=== PATIENT | female | born 1955 | race Caucasian/White ===

== ENCOUNTER 2018-12-18 00:18 | Inpatient (IN) | payer OTHER ==
[~2018-12-18] VITALS: Ht 160 cm; Wt 89.0 kg
[2018-12-18 01:03] LABS: Basophils # (auto) 0.1 uL; Basophils % (auto) 0.8 % (0.0-2.0); Eosinophils # (auto) 0.3 uL; Eosinophils % (auto) 4.1 % (0.0-7.0); Hematocrit 41.9 % (36.0-46.0); Hemoglobin 14.1 g/dL (12.2-16.2); Lymphocytes # (auto) 2.4 uL; Lymphocytes % (auto) 38.3 % (10.0-50.0); Mean Corpuscular Hemoglobin 32.7 pg (28.0-32.0); Mean Corpuscular Hgb Conc. 33.7 g/dL (32.0-36.0); Mean Corpuscular Volume 97.1 fL (80.0-100.0); Monocytes # (auto) 0.5 uL; Monocytes % (auto) 7.4 % (0.0-12.0); Neutrophils # (auto) 3.1 uL; Neutrophils % (auto) 49.4 % (37.0-80.0); Nucleated Red Blood Cells % 0.2 %; Platelet Count (auto) 284 10^3/uL (140-450); Red Blood Cells 4.32 10^6/uL (4.0-5.20); Red Cell Distribution Width 12.9 % (11.8-14.3); White Blood Cell 6.3 10^3/uL (4.4-10.8)
[2018-12-18 01:11] LABS: Urine Bacteria FEW /hpf (None Seen); Urine Blood 1+ /uL (Negative); Urine Mucus FEW (None Seen); Urine Specific Gravity 1.027 (1.001-1.035); Urine WBC 5 /hpf (0 - 5)
[2018-12-18 01:20] LABS: INR < 0.93 (0.9-1.15); Partial Thromboplastin Time 25.9 sec (23.64-32.05)
[2018-12-18 01:46] LABS: Albumin 3.9 g/dL (3.4-5.0); Calcium 8.9 mg/dL (8.5-10.1); Potassium 3.9 mmol/L (3.5-5.1)
[2018-12-18 01:48] LABS: BUN/Creatinine Ratio 30.3
[2018-12-18 01:52] LABS: Bilirubin, Total 0.5 mg/dL (0.2-1.0); Total Protein 6.9 g/dL (6.4-8.2)
[2018-12-18] MEDS ORDERED: cloNIDine HCL 0.1 MG TAB PO ONE (04:00)
[2018-12-18 04:20] LABS: Basophils # (auto) 0 uL; Basophils % (auto) 0.5 % (0.0-2.0); Eosinophils # (auto) 0.2 uL; Eosinophils % (auto) 3.5 % (0.0-7.0); Hematocrit 39.8 % (36.0-46.0); Hemoglobin 13.3 g/dL (12.2-16.2); Lymphocytes % (auto) 35.6 % (10.0-50.0); Mean Corpuscular Hemoglobin 32.5 pg (28.0-32.0); Mean Corpuscular Hgb Conc. 33.3 g/dL (32.0-36.0); Mean Corpuscular Volume 97.6 fL (80.0-100.0); Monocytes # (auto) 0.4 uL; Monocytes % (auto) 7.5 % (0.0-12.0); Neutrophils # (auto) 2.9 uL; Neutrophils % (auto) 52.9 % (37.0-80.0); Platelet Count (auto) 259 10^3/uL (140-450); Red Blood Cells 4.08 10^6/uL (4.0-5.20); Red Cell Distribution Width 13.1 % (11.8-14.3); White Blood Cell 5.6 10^3/uL (4.4-10.8)
[2018-12-18] MEDS ORDERED: ENOXAPARIN SOD 100 MG/1 ML SYRINGE SC ONE (04:30)
[2018-12-18 04:45] LABS: Albumin 3.6 g/dL (3.4-5.0); BUN/Creatinine Ratio 34.4; Bilirubin, Total 0.4 mg/dL (0.2-1.0); Potassium 4.3 mmol/L (3.5-5.1); Total Protein 6.5 g/dL (6.4-8.2)
[2018-12-18] MEDS ORDERED: HYDROcodone-ACET 5/325MG TAB PO PRN ×2 (06:00→07:15)
[2018-12-18] MEDS ORDERED: ACETAMINOPHEN 325 MG TAB PO PRN (06:00)
[2018-12-18] MEDS ORDERED: ATORVASTATIN 20 MG TAB PO ONE (06:00)
[2018-12-18] MEDS ORDERED: MORPHINE SULF INJ 2 MG/ML SYRINGE 1ML IV PRN (06:00)
[2018-12-18] MEDS ORDERED: cloNIDine HCL 0.1 MG TAB PO PRN (06:00)
[2018-12-18] MEDS ORDERED: TEMAZEPAM 15 MG CAP PO PRN (06:00)
[2018-12-18] MEDS ORDERED: NITROGLYCERIN 0.4 MG SL TAB SL PRN (06:00)
[2018-12-18] MEDS: FAMOTIDINE 20 MG TAB PO SCH ×2 (08:50→21:02)
[2018-12-18 09:00] VITALS: BP 136/77
[2018-12-18] MEDS: cefTRIAXone 1GM/50ML D5W 50 ML IV SCH (09:29)
--- NOTE | 2018-12-18 10:00 | NUR ---
7704 12/18/18 Contacted principal military analyst Migdalia at [facility] and requested authorization to be provided for patient's continued stay. Per Migdalia this patient has not been assigned to a patient case manager yet-the assigned patient case manager will have to review the clinical information before a decision can be made regarding further authorization. I requested that Migdalia have the assigned patient case manager call me regarding the authorization request. I faxed ER notes, H&P, all xrays, current vitals, labs, and medication list to [facility] at [phone].
[2018-12-18] MEDS: HYDROcodone-ACET 5/325MG TAB PO PRN (10:41)
[2018-12-18] MEDS ORDERED: CLOPIDOGREL 300 MG TAB PO ONE (11:15)
[2018-12-18] MEDS ORDERED: LOSA25TA8 PO (11:36)
[2018-12-18] MEDS ORDERED: ATOR20TA PO (11:36)
[2018-12-18] MEDS ORDERED: HYDR-4833 PO (11:36)
[2018-12-18 12:12] LABS: Magnesium 2.2 mg/dL (1.6-2.6)
[2018-12-18 13:00] VITALS: BP 134/88
[2018-12-18 17:00] VITALS: BP 132/73
[2018-12-18] MEDS: ENOXAPARIN SOD 100 MG/1 ML SYRINGE SC SCH (17:10)
--- NOTE | 2018-12-18 19:00 | NUR ---
OPENING NOTE RECEIVED REPORT FROM DAYSHIFT RN. ASSUMING ROLE OF CARE OF PATIENT AT THIS TIME. PATIENT STATING CHEST PAIN AND DISTRESS. DAYSHIFT RN INITIATING CHEST PAIN PROTOCOL. EKG SHOWING NORMAL SINUS RHYTHM, VS STABLE AT THIS TIME WITH BP 145/72, HR 63, AND OR 97%. PATIENT WILL BE MONITORED CLOSELY AND CHEST PAIN PROTOCOL WILL BE CONTINUED NECESSARY. PATIENT EDUCATED ON PLAN OF CARE AND PATIENT VERBALIZED UNDERSTANDING. BED LOWERED, CALL LIGHT WITHIN REACH, AND PATIENT WILL BE ROUNDED ON EVERY HOUR AND NEEDED.
[2018-12-18] MEDS: METOPROLOL TARTRATE 25 MG TAB PO SCH (21:04)
[2018-12-18 22:00] VITALS: BP 141/66
[2018-12-18] MEDS ORDERED: ATORVASTATIN 20 MG TAB PO SCH (22:00)
--- NOTE | 2018-12-19 | NUR ---
Per md garcias patient started on fluids Per order, patient started on normal saline at 1ml/kg/hr. Patient's current weight at 89kg. Will administer per md order.
[2018-12-19] MEDS: ENOXAPARIN SOD 100 MG/1 ML SYRINGE SC SCH (04:00)
[2018-12-19 05:00] VITALS: BP 135/71
[2018-12-19 06:12] LABS: Basophils # (auto) 0 uL; Basophils % (auto) 0.6 % (0.0-2.0); Eosinophils # (auto) 0.2 uL; Eosinophils % (auto) 5.1 % (0.0-7.0); Hematocrit 42.8 % (36.0-46.0); Hemoglobin 14.5 g/dL (12.2-16.2); Lymphocytes # (auto) 2.3 uL; Mean Corpuscular Hemoglobin 33.4 pg (28.0-32.0); Mean Corpuscular Volume 98.1 fL (80.0-100.0); Monocytes # (auto) 0.3 uL; Monocytes % (auto) 6.6 % (0.0-12.0); Neutrophils # (auto) 1.9 uL; Neutrophils % (auto) 39.7 % (37.0-80.0); Nucleated Red Blood Cells % 0.1 %; Platelet Count (auto) 279 10^3/uL (140-450); Red Blood Cells 4.36 10^6/uL (4.0-5.20); White Blood Cell 4.9 10^3/uL (4.4-10.8)
[2018-12-19 06:16] LABS: BUN/Creatinine Ratio 24.3; Calcium 8.7 mg/dL (8.5-10.1); INR 0.95 (0.9-1.15); Partial Thromboplastin Time 30.4 sec (23.64-32.05); Potassium 4.4 mmol/L (3.5-5.1)
[2018-12-19 08:00] VITALS: BP 157/82
--- NOTE | 2018-12-19 08:07 | NUR ---
patient at [facility]
[2018-12-19] MEDS ORDERED: LIDOCAINE 2%HCL (LOCAL ANESTH.) INJ 20ML MDV ONE (08:11)
[2018-12-19] MEDS ORDERED: IODIXANOL 320MG/ML 100ML BTL IV ONE (08:11)
[2018-12-19] MEDS ORDERED: SODIUM CHL 0.9% 0 ML ONE (08:17)
[2018-12-19] MEDS ORDERED: MIDAZOLAM HCL 1MG/1ML-2 ML VIAL ONE ×2 (08:17→09:24)
[2018-12-19] MEDS ORDERED: ANGIOMAX 250 MG VIAL IV ONE (08:17)
[2018-12-19] MEDS ORDERED: fentaNYL CITRATE 100 MCG/2 ML VL ONE (08:17)
[2018-12-19] MEDS ORDERED: IOHEXOL 350 MG/ML 100ML IJ ONE ×2 (08:18)
[2018-12-19] MEDS ORDERED: VERAPAMIL 2.5MG/ML INJ 2ML VIAL IV ONE (08:19)
[2018-12-19 09:00] VITALS: BP 157/82
[2018-12-19] MEDS: cefTRIAXone 1GM/50ML D5W 50 ML IV SCH (09:00)
[2018-12-19] MEDS: FAMOTIDINE 20 MG TAB PO SCH (09:22)
[2018-12-19] MEDS: METOPROLOL TARTRATE 25 MG TAB PO SCH (09:22)
[2018-12-19] MEDS: CLOPIDOGREL BISULFATE 75 MG TAB PO SCH ×2 (09:23→11:12)
[2018-12-19] MEDS ORDERED: HEPARIN SODIUM (PORCINE) 5000 UNITS/ML 1ML VIAL ONE (09:26)
--- NOTE | 2018-12-19 10:16 | NUR ---
1000 12/19/18 Contacted geographic information systems analyst Adwoa at [facility] requesting authorization for patient's continued stay. Per Adwoa, clinical information was received today-but the assigned bottle caser Aman has to review it before a decision can be made. I asked Adwoa about authorization for yesterday 12/18-she stated that the authorization given from [facility] yesterday is good until 1000 today-I asked her to have that authorization re-faxed as the one we received stated it was only good until 12/18 1000. I requested that Adwoa have bottle caser Aman give me a call-provided her with my contact information.
[2018-12-19 10:46] LABS: Cholesterol 203 mg/dL (< 200); Triglycerides 193 mg/dL (< 150)
[2018-12-19 10:51] LABS: HDL Cholesterol 56 mg/dL (40-59); LDL Cholesterol 120 mg/dL (< 100)
[2018-12-19] MEDS: SODIUM CHLORIDE 0.9% 1,000 ML IV SCH ×2 (11:07)
[2018-12-19] MEDS: HYDROcodone-ACET 5/325MG TAB PO PRN ×2 (11:14→15:49)
[2018-12-19] MEDS: ONDANSETRON HCL 4 MG/2 ML VIAL IV PRN ×2 (11:15→11:56)
[2018-12-19 13:00] VITALS: BP 125/74
[2018-12-19] MEDS ORDERED: PANTOPRAZOLE 40 MG TAB PO ONE (13:00)
[2018-12-19 16:08] VITALS: BP 142/87
--- NOTE | 2018-12-19 16:32 | NUR ---
PATIENT DISCHARGED HOME WITH FAMILY. ALL IV ACCESS DISCONTINUED. TELEMETRY BOX REMOVED AND RETURNED TO TELEMETRY DEPARTMENT. ALL DISCHARGE INSTRUCTIONS GIVEN. ALL DISCHARGE PAPERWORK SIGNED.
== END 2018-12-19 16:40 | disposition home or self-care (01) | DRG 281 ==
LOC: ER 00:19 → TELE 00:20 → TELE-WESTW 09:04
PROVIDERS: ADMIT Nurse Practitioner; ATTEND Internal Medicine
PROC: 4A023N7 Measurement of Cardiac Sampling and Pressure, Left Heart, Percutaneous Approach (ICD-10-PCS; principal; 2018-12-19)
PROC: B2111ZZ Fluoroscopy of Multiple Coronary Arteries using Low Osmolar Contrast (ICD-10-PCS; 2018-12-19)
PROC: B2151ZZ Fluoroscopy of Left Heart using Low Osmolar Contrast (ICD-10-PCS; 2018-12-19)
DX: I21.4 Non-ST elevation (NSTEMI) myocardial infarction (principal); N39.0 Urinary tract infection, site not specified; J98.11 Atelectasis; Q24.5 Malformation of coronary vessels; I10 Essential (primary) hypertension; F17.210 Nicotine dependence, cigarettes, uncomplicated; R73.9 Hyperglycemia, unspecified; G47.00 Insomnia, unspecified; E78.00 Pure hypercholesterolemia, unspecified; E78.5 Hyperlipidemia, unspecified; I25.10 Atherosclerotic heart disease of native coronary artery without angina pectoris; Z90.710 Acquired absence of both cervix and uterus; Z88.6 Allergy status to analgesic agent; Z79.899 Other long term (current) drug therapy
CPT/HCPCS: 36415; 71045; 80048; 80053; 80061; 81001; 82150; 83036; 83690; 83735; 83880; 84484; 85025; 85610; 85730; 86850; 86900; 86901; 93005; 93306; 93458; C1769; G0378; J0696; J2250; J2405; Q9967

== ENCOUNTER 2023-10-06 20:55 | Emergency (ER) | payer OTHER ==
[~2023-10-06] VITALS: Ht 160 cm; Wt 83.0 kg
[~2023-10-06 20:55] MED LIST: ATOR20TA PO; HYDR-4833 PO; LOSA25TA5 PO
[2023-10-06 22:22] VITALS: PULSE 94; RESP 18; O2SAT 95
[2023-10-06 22:35] LABS: Urine Bacteria FEW /hpf (None Seen); Urine Blood 3+ /uL (Negative); Urine Clarity Turbid (Clear); Urine Color Colorless (Yellow); Urine Protein, UAD 2+ (Negative); Urine Specific Gravity 1.005 (1.001-1.035); Urine Urobilinogen Normal (Negative); Urine WBC 510 /hpf (0 - 5); Urine WBC Clumps PRESENT /hpf (None Seen); Urine pH 5.5 (5.0-9.0)
[2023-10-07 00:30] VITALS: BP 145/63; PULSE 99; RESP 20; TEMP 98.6; O2SAT 96
[2023-10-07] MEDS: KETOROLAC TROMETH 60MG/2ML VIAL IM ONE (00:50)
[2023-10-07] MEDS ORDERED: CIPR-173 PO (02:57)
[2023-10-07] MEDS ORDERED: METR-344 PO (02:57)
== END 2023-10-07 03:52 | disposition home or self-care (01) ==
LOC: ER 20:55
DX: K57.30 Diverticulosis of large intestine without perforation or abscess without bleeding (principal); N39.0 Urinary tract infection, site not specified; N20.0 Calculus of kidney; I10 Essential (primary) hypertension; E78.5 Hyperlipidemia, unspecified; F17.210 Nicotine dependence, cigarettes, uncomplicated; Z90.710 Acquired absence of both cervix and uterus; Z88.8 Allergy status to other drugs, medicaments and biological substances; Z79.899 Other long term (current) drug therapy
CPT/HCPCS: 74176; 81001; 96372; 99285; J1885